=== PATIENT | female | born 1950 | race Caucasian/White ===

== ENCOUNTER → 2019-05-10 | Outpatient (CLI) | payer BC ==
[2019-05-10 10:00] VITALS: BP 119/74
--- NOTE | 2019-05-10 10:00 | NUR ---
PT. TO CLINIC VIA AMBULATION WITH C/O TWO EPISODES OF CHEST PAIN , ONCE WED. EVENING, AND ONCE WEDNESDAY EVENING. SUBSTERNAL IN NATURE, NON-RADIATING, WITH EACH EPISODE LASTING APPROX. 15-20 MIN. NO NAUSEA, NO MECH. OF INJURY OR EXERTIONAL ACTIVITY TO INITIATE PAIN WHICH WAS SHARP IN NATURE 6-8/10 ON PAIN SCALE. PT STATES NO RECURRING PAIN SINCE THAT TIME. NEW ORDERS RECEIVED AND CARRIED OUT. SEE NSG ASSESS.
--- NOTE | 2019-05-10 10:30 | NUR ---
EKG DONE SHOWING RSR, WITH BORDERLINE T-WAVE ABNORMALITIES NOTED. EKG COMPARED TO PREVIOUS EKG DONE BY PMD ON 11/08/18. DR. BAPTISTE ADVISED OF EKG COMPARISONS, WITH LAB WORK ORDERED.
--- NOTE | 2019-05-10 11:00 | NUR ---
LABS DRAWN AND SENT PER MD ORDER.
[2019-05-10 11:15] VITALS: BP 123/80
--- NOTE | 2019-05-10 11:15 | NUR ---
Discharge Instructions See e-MAR for any mediations given with this visit. Patient education given on disease process. Patient verbalized understanding. Previous ekg reviewed. Patient discharged in stable condition with after care instructions and follow up appointment. pt. is to be scheduled for stress test per md order. This RN will follow up with scheduled tests and labs. Pt. remained chest pain free during time in clinic.
[2019-05-10 16:09] LABS: Basophils # (auto) 0 uL; Basophils % (auto) 0.6 % (0.0-2.0); Eosinophils # (auto) 0.2 uL; Eosinophils % (auto) 3.3 % (0.0-7.0); Hematocrit 43.9 % (36.0-46.0); Lymphocytes # (auto) 1.2 uL; Lymphocytes % (auto) 20.7 % (10.0-50.0); Mean Corpuscular Hemoglobin 31.4 pg (28.0-32.0); Mean Corpuscular Hgb Conc. 34.2 g/dL (32.0-36.0); Mean Corpuscular Volume 91.9 fL (80.0-100.0); Monocytes # (auto) 0.5 uL; Neutrophils % (auto) 67.4 % (37.0-80.0); Nucleated Red Blood Cells % 0.1 %; Platelet Count (auto) 209 10^3/uL (140-450); Red Blood Cells 4.77 10^6/uL (4.0-5.20); Red Cell Distribution Width 12.9 % (11.8-14.3)
[2019-05-10 16:11] LABS: Albumin 4.1 g/dL (3.4-5.0); BUN/Creatinine Ratio 17.9; Calcium 9.9 mg/dL (8.5-10.1); Magnesium 2.3 mg/dL (1.6-2.6); Potassium 4.2 mmol/L (3.5-5.1)
[2019-05-10 16:14] LABS: Bilirubin, Total 0.4 mg/dL (0.2-1.0)
== END | disposition home or self-care (01) ==
LOC: CHF HDHVI 10:54
PROVIDERS: ATTEND Internal Medicine Cardiovascular Disease
DX: E83.40 Disorders of magnesium metabolism, unspecified (principal); D64.9 Anemia, unspecified; R07.9 Chest pain, unspecified
CPT/HCPCS: 36415; 80053; 83735; 85025; 93005; G0463